=== PATIENT | male | born 1955 | race Caucasian/White ===

== ENCOUNTER → 2016-10-29 | Outpatient (CLI) | payer OTHER ==
--- NOTE | 2016-10-29 15:41 | KCIC ---
Left lower extremity venous doppler ultrasound History: Left lower extremity swelling and pain, calf pain Comparison: None Findings: Multiple grayscale, color, and duplex spectral analysis sonographic images were acquired of the left lower extremity veins to evaluate for the presence of DVT. There is normal phasicity. Normal compression, color-flow, and augmentation is demonstrated from the left common femoral to the popliteal veins. There is normal color flow of the proximal greater saphenous and profunda femoris veins. There is normal color flow of segments of the calf veins. There are nonspecific nodes in the left groin region, largest 2.5 x 0.8 x 1.9 cm in size. Impression: 1. There is no evidence of deep venous thrombosis from the left common femoral to popliteal veins. 2. There are nonspecific left groin lymph nodes although the largest not considered significantly enlarged by axial imaging criteria.. Electronically signed by: Loyd Osman MD (10/29/2016 3:38 PM)
== END | disposition home or self-care (01) ==
LOC: KCIC US 14:47
PROVIDERS: ATTEND Family Medicine
DX: M79.605 Pain in left leg (principal); M79.89 Other specified soft tissue disorders
CPT/HCPCS: 93971